=== PATIENT | male | born 1965 | race Caucasian/White ===

== ENCOUNTER 2019-04-12 09:56 | Outpatient (CLI) | payer OTHER ==
[2019-04-12 11:28] LABS: BASOPHILS # (AUTO) 0.07 x10^3/uL (0-0.1); BASOPHILS % (AUTO) 1 % (0-1); EOSINOPHILS # (AUTO) 0.26 x10^3/uL (0-0.4); EOSINOPHILS % (AUTO) 3 % (1-7); LYMPHOCYTES # (AUTO) 2.58 x10^3/uL (1-3.4); LYMPHOCYTES % (AUTO) 31 % (22-44); MD NO; MEAN CORPUSCULAR HEMOGLOBIN 31.1 pg (27.5-34.5); MEAN CORPUSCULAR HGB CONC 32.8 g/dL (33.2-36.2); MEAN CORPUSCULAR VOLUME 94.9 fL (81-97); MEAN PLATELET VOLUME 7.7 fL (7.4-10.4); MONOCYTES # (AUTO) 0.61 x10^3/uL (0.2-0.8); MONOCYTES % (AUTO) 7 % (2-9); NEUTROPHILS # (AUTO) 4.76 x10^3/uL (1.8-6.8); NEUTROPHILS % (AUTO) 58 % (42-75); PLATELET COUNT 274 x10^3/uL (130-400); RED BLOOD COUNT 5.02 x10^6/uL (4.38-5.82); RED CELL DISTRIBUTION WIDTH 13.8 % (9.4-14.8)
[2019-04-12 11:33] LABS: ALANINE AMINOTRANSFERASE 20 U/L (12-78); ALBUMIN 3.9 g/dL (3.4-5.0); ANION GAP 6 mmol/L (5-15); CALCIUM 8.9 mg/dL (8.5-10.1); CHLORIDE 108 mmol/L (98-107); CREATININE 0.94 mg/dL (0.7-1.3)
[2019-04-12 11:34] LABS: INTERNATIONAL NORMALIZED RATIO 1.01 (0.93-1.1); MICROSCOPIC AUTO; PROTHROMBIN TIME 10.6 Seconds (9.6-11.5)
[2019-04-12 11:35] LABS: ALKALINE PHOSPHATASE 74 U/L (45-117); BILIRUBIN,TOTAL 0.4 mg/dL (0.2-1.0); CULTURE INDICATED? NO
[2019-04-12] MEDS ORDERED: CITA20TA6 PO (11:39)
[2019-04-12] MEDS ORDERED: MULT-658 PO (11:39)
[2019-04-12] MEDS ORDERED: VITA1TAB3 PO (11:39)
[2019-04-12] MEDS ORDERED: MAGN400T36 PO (11:39)
[2019-04-12] MEDS ORDERED: DIVA500T2 PO (11:39)
== END 2019-04-12 23:59 | disposition home or self-care (01) ==
LOC: STAR 09:56
PROVIDERS: ATTEND Neurological Surgery
DX: Z01.818 Encounter for other preprocedural examination (principal); M50.30 Other cervical disc degeneration, unspecified cervical region; M48.02 Spinal stenosis, cervical region; M54.12 Radiculopathy, cervical region
CPT/HCPCS: 36415; 71046; 80053; 81001; 85025; 85610; 85730; 93005

== ENCOUNTER 2019-04-19 09:58 | Inpatient (IN) | payer OTHER ==
[~2019-04-19] VITALS: Ht 185.4 cm; Wt 87.3 kg
[~2019-04-19 09:58] MED LIST: BACITRACIN 50,000 UNIT ONE; BUPIVACAINE/PF 0.5% ONE; CITA20TA6 PO; DIVA500T2 PO; EPINEPHRINE 1 MG/ML, 1ML ONE; MAGN400T36 PO; MULT-658 PO; THROMBIN 5,000 UNIT VIAL TP ONE; VITA1TAB3 PO
[2019-04-19 11:05] VITALS: BP 116/77
[2019-04-19] MEDS ORDERED: LACTATED RINGERS 1,000 ML IV SCH (11:10)
[2019-04-19] MEDS ORDERED: ARTHRITIS MED PO (11:12)
[2019-04-19] MEDS ORDERED: FENTANYL PF 250 MCG/5ML ONE ×2 (12:47→15:30)
[2019-04-19] MEDS ORDERED: MIDAZOLAM 1 MG/ML, 2ML ONE (12:47)
[2019-04-19] MEDS ORDERED: NEOSTIGMINE 1 MG/ML, 10ML ONE (13:36)
[2019-04-19] MEDS ORDERED: ROCURONIUM 10MG/ML,5ML ONE (13:36)
[2019-04-19] MEDS ORDERED: DEXAMETHASONE 4 MG/ML, 1ML ONE (13:36)
[2019-04-19] MEDS ORDERED: GLYCOPYRROLATE 0.2MG/1ML, 5ML ONE (13:36)
[2019-04-19] MEDS ORDERED: SUCCINYLCHOLINE 20 MG/ML, 10ML ONE (13:36)
[2019-04-19] MEDS ORDERED: CEFAZOLIN 1,000 MG ONE (13:36)
[2019-04-19] MEDS ORDERED: PROPOFOL 10 MG/ML, 20ML ONE (13:36)
[2019-04-19] MEDS ORDERED: ONDANSETRON 2MG/ML, 2ML ONE (13:36)
[2019-04-19] MEDS: DIAZEPAM 5 MG/ML, 2ML IVPush PRN ×2 (15:46→16:08)
[2019-04-19] MEDS ORDERED: OXYcodone 5 MG/5 ML ORAL.SOL UDC ONE (15:47)
[2019-04-19] MEDS ORDERED: DIAZEPAM 5 MG/ML, 2ML ONE (15:47)
[2019-04-19] MEDS ORDERED: FENTANYL PF 100 MCG/2ML ONE (15:47)
[2019-04-19] MEDS ORDERED: HYDROmorphone 2 MG/ML, 1ML ONE (15:47)
[2019-04-19] MEDS ORDERED: FENTANYL PF 100 MCG/2ML IV PRN (16:00)
[2019-04-19] MEDS ORDERED: PROMETHAZINE 25 MG/ML, 1ML IV PRN (16:00)
[2019-04-19] MEDS ORDERED: KETOROLAC 30 MG/1 ML IV PRN (16:00)
[2019-04-19] MEDS ORDERED: HYDROmorphone 2 MG/ML, 1ML IVPush PRN (16:00)
[2019-04-19] MEDS ORDERED: hydrALAzine 20 MG/ML, 1ML IV PRN (16:00)
[2019-04-19] MEDS ORDERED: MEPERIDINE/PF 25MG/0.5ML IVPush PRN (16:00)
[2019-04-19] MEDS ORDERED: ALBUTEROL SULFATE 2.5 MG/3 ML NPPB PRN (16:00)
[2019-04-19] MEDS ORDERED: LABETALOL 5MG/ML, 20ML IV PRN (16:00)
[2019-04-19] MEDS ORDERED: OXYcodone 5 MG/5 ML ORAL.SOL UDC PO PRN (16:00)
[2019-04-19] MEDS ORDERED: ACETAMINOPHEN 325 MG TABLET PO PRN (16:00)
[2019-04-19] MEDS ORDERED: CYCLOBENZAPRINE 10 MG TABLET ONE (16:15)
[2019-04-19] MEDS ORDERED: CYCLOBENZAPRINE 10 MG TABLET PO ONE (16:30)
[2019-04-19] MEDS ORDERED: PROMETHAZINE 25 MG/ML, 1ML IM PRN (18:00)
[2019-04-19] MEDS ORDERED: DIPHENHYDRAMINE 50 MG/ML, 1ML IVPush PRN (18:00)
[2019-04-19] MEDS ORDERED: HYDROmorphone 2 MG/ML, 1ML IM PRN (18:00)
[2019-04-19] MEDS ORDERED: BISACODYL 10 MG SUPP PR PRN (18:00)
[2019-04-19] MEDS ORDERED: DIPHENHYDRAMINE 50 MG CAPSULE PO PRN (18:00)
[2019-04-19] MEDS ORDERED: D5%-0.9% NACL+KCL 20MEQ 1,000 ML IV SCH (18:00)
[2019-04-19] MEDS ORDERED: HYDROmorphone 2MG TABLET PO PRN (18:00)
[2019-04-19] MEDS ORDERED: ONDANSETRON 2MG/ML, 2ML IV PRN (18:00)
[2019-04-19] MEDS ORDERED: MAGNESIUM HYDROXIDE 8%, 30ML UDC PO PRN (18:00)
[2019-04-19] MEDS ORDERED: DIPHENHYDRAMINE 50 MG/ML, 1ML IM PRN (18:00)
[2019-04-19] MEDS ORDERED: HYDROcodone/APAP 5/325 TABLET PO PRN (19:50)
[2019-04-19] MEDS: DEXAMETHASONE 4 MG/ML, 1ML IV SCH (19:58)
[2019-04-19] MEDS: OXYcodone/APAP 5/325MG TABLET PO PRN (20:11)
[2019-04-19 22:01] VITALS: BP 136/86
[2019-04-19] MEDS: CEFAZOLIN PMX 1GM/50ML 50 ML IVPB SCH (22:36)
[2019-04-20 00:15] VITALS: BP 160/95
[2019-04-20] MEDS: DEXAMETHASONE 4 MG/ML, 1ML IV SCH ×2 (01:41→07:46)
[2019-04-20 04:25] VITALS: BP 129/86
[2019-04-20 04:44] LABS: BASOPHILS # (AUTO) 0.02 x10^3/uL (0-0.1); BASOPHILS % (AUTO) 0 % (0-1); EOSINOPHILS % (AUTO) 0 % (1-7); LYMPHOCYTES # (AUTO) 0.75 x10^3/uL (1-3.4); LYMPHOCYTES % (AUTO) 5 % (22-44); MD NO; MEAN CORPUSCULAR HEMOGLOBIN 31.6 pg (27.5-34.5); MEAN CORPUSCULAR HGB CONC 33.1 g/dL (33.2-36.2); MEAN CORPUSCULAR VOLUME 95.4 fL (81-97); MEAN PLATELET VOLUME 7.9 fL (7.4-10.4); MONOCYTES # (AUTO) 0.39 x10^3/uL (0.2-0.8); MONOCYTES % (AUTO) 3 % (2-9); NEUTROPHILS # (AUTO) 13.49 x10^3/uL (1.8-6.8); NEUTROPHILS % (AUTO) 92 % (42-75); PLATELET COUNT 244 x10^3/uL (130-400)
[2019-04-20 05:00] LABS: ANION GAP 7 mmol/L (5-15); CALCIUM 8.4 mg/dL (8.5-10.1); CHLORIDE 107 mmol/L (98-107); CREATININE 0.99 mg/dL (0.7-1.3)
[2019-04-20] MEDS: CEFAZOLIN PMX 1GM/50ML 50 ML IVPB SCH (06:19)
[2019-04-20 07:53] VITALS: BP 129/88
[2019-04-20] MEDS: CYCLOBENZAPRINE 10 MG TABLET PO PRN ×2 (08:26)
[2019-04-20] MEDS: OXYcodone/APAP 5/325MG TABLET PO PRN ×2 (08:30)
[2019-04-20] MEDS ORDERED: DIVALPROEX 500 MG TABLET.DR PO SCH (09:00)
[2019-04-20] MEDS ORDERED: CITALOPRAM 20 MG TABLET PO SCH (09:00)
[2019-04-20] MEDS ORDERED: SENNA/DOCUSATE TABLET PO SCH (09:00)
[2019-04-20] MEDS ORDERED: OXYC-302 PO (09:25)
[2019-04-20] MEDS ORDERED: CYCL-259 PO (09:27)
[2019-04-20] MEDS ORDERED: METH4TAB6 PO (09:28)
== END 2019-04-20 10:10 | disposition home or self-care (01) | DRG 472 ==
LOC: ORIP 10:39 → 4NOR 17:00 → DCLOUNGE 04-20 09:52
PROVIDERS: ADMIT Neurological Surgery; ATTEND Neurological Surgery
PROC: 0RB30ZZ Excision of Cervical Vertebral Disc, Open Approach (ICD-10-PCS; 2019-04-19)
PROC: 00NW0ZZ Release Cervical Spinal Cord, Open Approach (ICD-10-PCS; 2019-04-19)
PROC: 01N10ZZ Release Cervical Nerve, Open Approach (ICD-10-PCS; 2019-04-19)
PROC: 0RG20A0 Fusion of 2 or more Cervical Vertebral Joints with Interbody Fusion Device, Anterior Approach, Anterior Column, Open Approach (ICD-10-PCS; principal; 2019-04-19 12:30)
DX: M48.02 Spinal stenosis, cervical region (principal); G95.29 Other cord compression; M43.12 Spondylolisthesis, cervical region; M50.121 Cervical disc disorder at C4-C5 level with radiculopathy; G43.909 Migraine, unspecified, not intractable, without status migrainosus; F17.210 Nicotine dependence, cigarettes, uncomplicated; F32.9 Major depressive disorder, single episode, unspecified; F12.10 Cannabis abuse, uncomplicated; F17.200 Nicotine dependence, unspecified, uncomplicated; Z88.8 Allergy status to other drugs, medicaments and biological substances; Z91.013 Allergy to seafood; Z81.8 Family history of other mental and behavioral disorders; Z82.0 Family history of epilepsy and other diseases of the nervous system
CPT/HCPCS: 36415; 72040; S0020; 80048; 85025; 86850; 86900; C1713; G0378; J0171; J0690; J1100; J1170; J2250; J2405; J2704; J2710; J3010; J3360; C1776; J0330; J3480; J7120

== ENCOUNTER → 2020-08-02 | Outpatient (CLI) | payer OTHER ==
[~2020-08-02] MED LIST changes: +ARTHRITIS MED PO; -BACITRACIN 50,000 UNIT ONE; -BUPIVACAINE/PF 0.5% ONE; +CYCL-259 PO; -EPINEPHRINE 1 MG/ML, 1ML ONE; +METH4TAB6 PO; +OXYC-302 PO; -THROMBIN 5,000 UNIT VIAL TP ONE
[2020-08-02 15:33] LABS: BASOPHILS # (AUTO) 0.09 x10^3/uL (0-0.1); BASOPHILS % (AUTO) 1 % (0-1); EOSINOPHILS # (AUTO) 0.25 x10^3/uL (0-0.4); EOSINOPHILS % (AUTO) 3 % (1-7); LYMPHOCYTES # (AUTO) 2.44 x10^3/uL (1-3.4); LYMPHOCYTES % (AUTO) 31 % (22-44); MD NO; MEAN CORPUSCULAR HEMOGLOBIN 31.4 pg (27.5-34.5); MEAN CORPUSCULAR HGB CONC 32.9 g/dL (33.2-36.2); MEAN PLATELET VOLUME 8.3 fL (7.4-10.4); MONOCYTES # (AUTO) 0.59 x10^3/uL (0.2-0.8); MONOCYTES % (AUTO) 8 % (2-9); NEUTROPHILS # (AUTO) 4.42 x10^3/uL (1.8-6.8); NEUTROPHILS % (AUTO) 57 % (42-75); PLATELET COUNT 293 x10^3/uL (130-400); RED BLOOD COUNT 5.03 x10^6/uL (4.38-5.82); RED CELL DISTRIBUTION WIDTH 13.9 % (9.4-14.8)
[2020-08-02 15:35] LABS: ANION GAP 5 mmol/L (5-15); CALCIUM 8.9 mg/dL (8.5-10.1); CHLORIDE 108 mmol/L (98-107); CREATININE 1.08 mg/dL (0.7-1.3)
[2020-08-02 16:04] LABS: PROTHROMBIN TIME 10.3 Seconds (9.6-11.5)
[2020-08-02 16:06] LABS: MICROSCOPIC NOT IND
== END | disposition home or self-care (01) ==
LOC: STAR 13:26
PROVIDERS: ATTEND Neurological Surgery
DX: Z01.812 Encounter for preprocedural laboratory examination (principal); Z01.811 Encounter for preprocedural respiratory examination; Z20.828 Contact with and (suspected) exposure to other viral communicable diseases; R94.31 Abnormal electrocardiogram [ECG] [EKG]; R79.1 Abnormal coagulation profile; M54.12 Radiculopathy, cervical region
CPT/HCPCS: 36415; 71046; 80048; 81003; 85025; 85610; 85730; 87635; 93005

== ENCOUNTER 2020-08-07 05:35 | Observation (INO) | payer OTHER ==
[~2020-08-07] VITALS: Ht 185.4 cm; Wt 85.1 kg
[2020-08-07] MEDS ORDERED: CHLORHEXIDINE 15 ML UDC MM STA (05:54)
[2020-08-07] MEDS ORDERED: LACTATED RINGERS 1,000 ML IV STA (05:54)
[2020-08-07 05:55] VITALS: BP 135/91
[2020-08-07] MEDS ORDERED: CHLORHEXIDINE 15 ML UDC ONE (06:00)
[2020-08-07] MEDS ORDERED: EPINEPHRINE 1 MG/ML, 1ML ONE (06:15)
[2020-08-07] MEDS ORDERED: BACITRACIN 50,000 UNIT ONE (06:15)
[2020-08-07] MEDS ORDERED: BUPIVACAINE/PF 0.5% ONE (06:15)
[2020-08-07] MEDS ORDERED: LACTATED RINGERS 1,000 ML IV ONE (06:30)
[2020-08-07] MEDS ORDERED: MIDAZOLAM 1 MG/ML, 2ML ONE (06:54)
[2020-08-07] MEDS ORDERED: FENTANYL PF 100 MCG/2ML ONE ×2 (06:55→07:33)
[2020-08-07] MEDS ORDERED: LIDOCAINE-MPF 2% ,5ML ONE (07:00)
[2020-08-07] MEDS ORDERED: ROCURONIUM 10 MG/ML,10ML ONE (07:03)
[2020-08-07] MEDS ORDERED: DEXAMETHASONE 4 MG/ML, 1ML ONE (07:42)
[2020-08-07] MEDS ORDERED: GLYCOPYRROLATE 0.2MG/1ML, 5ML ONE (07:42)
[2020-08-07] MEDS ORDERED: NEOSTIGMINE 1 MG/ML, 10ML ONE (07:42)
[2020-08-07] MEDS ORDERED: PROPOFOL 10 MG/ML, 20ML ONE (07:42)
[2020-08-07] MEDS ORDERED: SUCCINYLCHOLINE 20 MG/ML, 10ML ONE (07:42)
[2020-08-07] MEDS ORDERED: ONDANSETRON 2MG/ML, 2ML ONE (07:42)
[2020-08-07] MEDS ORDERED: CEFAZOLIN 1,000 MG ONE (07:42)
[2020-08-07] MEDS ORDERED: NS + 20MEQ KCL 1,000 ML IV SCH (08:00)
[2020-08-07] MEDS ORDERED: DIPHENHYDRAMINE 50 MG CAPSULE PO PRN (08:00)
[2020-08-07] MEDS ORDERED: CEFAZOLIN PMX 1GM/50ML 50 ML IVPB SCH (08:00)
[2020-08-07] MEDS ORDERED: DIPHENHYDRAMINE 50 MG/ML, 1ML IM PRN (08:00)
[2020-08-07] MEDS ORDERED: LABETALOL 5MG/ML, 20ML IVPush PRN (08:00)
[2020-08-07] MEDS ORDERED: PROMETHAZINE 25 MG/ML, 1ML IM PRN (08:00)
[2020-08-07] MEDS ORDERED: METHOCARBAMOL 1,000 MG in DEXTROSE 5% 100 ML IV ONE (08:00)
[2020-08-07] MEDS ORDERED: ONDANSETRON 2MG/ML, 2ML IVPush PRN (08:00)
[2020-08-07] MEDS ORDERED: SENNA/DOCUSATE TABLET PO PRN (08:00)
[2020-08-07] MEDS ORDERED: MAGNESIUM HYDROXIDE 8%, 30ML UDC PO PRN (08:00)
[2020-08-07] MEDS ORDERED: morphine SULFATE 10 MG/ML, 1ML IVPush PRN (08:00)
[2020-08-07] MEDS ORDERED: PHARMACY MAY ADJ FOR RENAL FX MC PRN (08:00)
[2020-08-07] MEDS ORDERED: OXYcodone/APAP 5/325MG TABLET PO PRN (08:00)
[2020-08-07] MEDS ORDERED: BISACODYL 10 MG SUPP PR PRN (08:00)
[2020-08-07] MEDS ORDERED: HYDROcodone/APAP 5/325 TABLET PO PRN (08:00)
[2020-08-07] MEDS ORDERED: DIPHENHYDRAMINE 50 MG/ML, 1ML IVPush PRN (08:00)
[2020-08-07] MEDS ORDERED: ACETAMINOPHEN 650 MG/20.3 ML UDC ONE (08:17)
[2020-08-07] MEDS ORDERED: LABETALOL 5MG/ML, 20ML IV PRN (08:30)
[2020-08-07] MEDS ORDERED: OXYcodone 5 MG/5 ML ORAL.SOL UDC PO PRN (08:30)
[2020-08-07] MEDS ORDERED: hydrALAzine 20 MG/ML, 1ML IV PRN (08:30)
[2020-08-07] MEDS ORDERED: MEPERIDINE/PF 25MG/0.5ML IVPush PRN (08:30)
[2020-08-07] MEDS ORDERED: PROMETHAZINE 25 MG/ML, 1ML IVPush PRN (08:30)
[2020-08-07] MEDS ORDERED: METHOCARBAMOL 1,000 MG in DEXTROSE 5% 100 ML IV PRN (08:30)
[2020-08-07] MEDS ORDERED: FENTANYL PF 100 MCG/2ML IV PRN (08:30)
[2020-08-07] MEDS ORDERED: ACETAMINOPHEN 325 MG TABLET PO PRN (08:30)
[2020-08-07] MEDS ORDERED: HYDROmorphone 1 MG/ML, 1ML INJ IVPush PRN (08:30)
[2020-08-07] MEDS ORDERED: ALBUTEROL SULFATE 2.5 MG/3 ML NPPB PRN (08:30)
[2020-08-07] MEDS ORDERED: CITALOPRAM 20 MG TABLET PO SCH (09:00)
[2020-08-07] MEDS ORDERED: DIVALPROEX 500 MG TABLET.DR PO SCH (09:00)
[2020-08-09] MEDS ORDERED: METHOCARBAMOL 750 MG TABLET PO SCH (16:00)
== END 2020-08-07 10:32 | disposition home or self-care (01) ==
LOC: INTOOBSV 05:35 → ORIP 05:35 → EDSTATUS 07:00
PROVIDERS: ADMIT Neurological Surgery; ATTEND Neurological Surgery
DX: T85.698A Other mechanical complication of other specified internal prosthetic devices, implants and grafts, initial encounter (principal); G56.01 Carpal tunnel syndrome, right upper limb; G43.909 Migraine, unspecified, not intractable, without status migrainosus; F32.9 Major depressive disorder, single episode, unspecified; F17.210 Nicotine dependence, cigarettes, uncomplicated; J44.9 Chronic obstructive pulmonary disease, unspecified; Z79.899 Other long term (current) drug therapy
CPT/HCPCS: 20680; 72040; G0378; J0171; J0330; J0690; J1100; J2250; J2405; J2704; J2710; J2800; J3010; J3490; J7120; S0020